=== PATIENT | male | born 1960 | race Caucasian/White ===

== ENCOUNTER 2019-03-15 17:32 | Inpatient (IN) | payer OTHER, MEDICAID ==
[~2019-03-15] VITALS: Ht 165.1 cm; Wt 56.3 kg
[~2019-03-15 17:32] MED LIST: AMLO-145 PO; ASPI-817 PO; ATOR40TA68 PO; CEFE1FRO IV; CHOL200073 PO; CLOP75TA28 PO; FLUC200T PO; HYDR-3601 PO; Insulin Glargine SC; LISI-313 PO; METF100010 PO; NOVO3I SC; ZOLP5TAB PO
[2019-03-15] MEDS ORDERED: ONDANSETRON 4 MG INJ IV PRN ×2 (20:30→21:30)
[2019-03-15] MEDS ORDERED: ACETAMINOPHEN 325 MG TAB PO PRN ×2 (20:30→21:30)
[2019-03-15] MEDS ORDERED: PIPER-TAZO 3.375 GM IV (PMX) 100 ML IVPB ONE (21:00)
[2019-03-15] MEDS ORDERED: DEXTROSE 50% 50 ML SYRINGE IV PRN ×2 (21:30)
[2019-03-15] MEDS ORDERED: GLUCOSE GEL 15 GRAM TUBE PO PRN ×2 (21:30)
[2019-03-15] MEDS ORDERED: HYDROCODONE/APAP (5/325) TAB PO PRN (21:30)
[2019-03-15] MEDS ORDERED: INSULIN GLARGINE [LANTus] (100 UNITS/ML) SYG SC ONE (21:30)
[2019-03-15] MEDS ORDERED: morphine 2 MG INJ IV PRN (21:30)
[2019-03-15] MEDS ORDERED: VANCOMYCIN IV PER PHARMACY XX SCH (21:30)
[2019-03-15] MEDS ORDERED: SOD CHLORIDE 0.9% 1,000 ML IV ONE (21:30)
[2019-03-15] MEDS ORDERED: GLUCOSE GEL 15 GRAM TUBE BUCCAL PRN (21:30)
[2019-03-15] MEDS ORDERED: GLUCAGON 1 MG INJ IM PRN (21:30)
[2019-03-15] MEDS ORDERED: VANCOMYCIN 1 GM in 250 ML IVPB ONE (21:30)
[2019-03-15] MEDS: SOD CHLORIDE 0.9% 1,000 ML IV SCH (23:46)
[2019-03-15] MEDS: DOCUSATE SODIUM 100 MG CAP PO SCH (23:54)
[2019-03-16] VITALS (18 sets, daily range): BP systolic 95–179; BP diastolic 58–91; PULSE 66–84; RESP 7–20; Ht 165.1 cm; Wt 56.3 kg
[2019-03-16] MEDS: INSULIN ASPART [NOVOLOG] 3 ML PEN SC SCH ×4 (00:03→17:54)
[2019-03-16] MEDS: ACCU-CHEK XX SCH (02:00)
[2019-03-16] MEDS: PIPER-TAZO 3.375 GM IV (PMX) 100 ML IVPB SCH ×3 (05:18→18:01)
[2019-03-16] MEDS: DOCUSATE SODIUM 100 MG CAP PO SCH ×2 (08:38→20:36)
[2019-03-16] MEDS: VANCOMYCIN 750 MG (PMX) 250 ML IVPB SCH (11:18)
[2019-03-16] MEDS ORDERED: PROPOFOL 20 ML ONE (12:00)
[2019-03-16] MEDS ORDERED: BUPIVACAINE 0.5% (SDV) 30 ML INJ ONE (12:21)
[2019-03-16] MEDS ORDERED: POLYMYXIN/BACITRACIN 1L IRRIG ONE (12:21)
[2019-03-16] MEDS ORDERED: LIDOCAINE 1% (MPF) 30 ML INJ ONE (12:21)
[2019-03-16] MEDS ORDERED: FENTAnyl 50 MCG/ML VIAL ONE (12:31)
[2019-03-16] MEDS ORDERED: MIDAZOLAM 1 MG/ML 2 ML INJ ONE (12:31)
[2019-03-16] MEDS: SOD CHLORIDE 0.9% 1,000 ML IV SCH ×2 (13:20→21:42)
[2019-03-16] MEDS ORDERED: FENTAnyl 50 MCG/ML VIAL IV PRN ×2 (13:30)
[2019-03-16] MEDS ORDERED: DIPHENHYDRAMINE 50 MG INJ IV PRN (13:30)
[2019-03-16] MEDS ORDERED: EPHEDrine 25 MG/5 ML SYG IV PRN (13:30)
[2019-03-16] MEDS ORDERED: hydrALAzine 20 MG INJ IV PRN (13:30)
[2019-03-16] MEDS ORDERED: ONDANSETRON 4 MG INJ IV PRN (13:30)
[2019-03-16] MEDS ORDERED: ALBUTEROL 0.083% (NEB) 2.5 MG/3 ML AMP HHN PRN (13:30)
[2019-03-16] MEDS ORDERED: METOCLOPRAMIDE 10 MG INJ IV PRN (13:30)
[2019-03-16] MEDS ORDERED: KETOROLAC 30 MG INJ IV PRN (13:30)
[2019-03-16] MEDS ORDERED: HYDROmorphONE 1 MG/5 ML IV SYRINGE IV PRN ×2 (13:30)
[2019-03-16] MEDS ORDERED: OXYCODONE/ACETAMINOPHEN (5/325) TAB PO PRN ×2 (13:30)
[2019-03-16] MEDS ORDERED: ALBUMIN HUMAN 5% 250 ML IV PRN (13:30)
[2019-03-16] MEDS ORDERED: LABETALOL HCL 20MG INJ IV PRN (13:30)
[2019-03-16] MEDS ORDERED: MEPERIDINE 25 MG INJ IV PRN (13:30)
[2019-03-16] MEDS: Insulin NOVOLOG SS MILD Algorithm (SS with meals and bedtime) SC SCH ×2 (17:25→20:37)
[2019-03-16] MEDS ORDERED: INSULIN ASPART [NOVOLOG] 3 ML PEN SC SCH (17:30)
[2019-03-16] MEDS: INSULIN GLARGINE [LANTus] (100 UNITS/ML) SYG SC SCH (20:43)
[2019-03-16] MEDS: hydrALAzine 20 MG INJ IV PRN (21:43)
[2019-03-17] MEDS: VANCOMYCIN 750 MG (PMX) 250 ML IVPB SCH ×2 (00:29→10:50)
[2019-03-17] MEDS: PIPER-TAZO 3.375 GM IV (PMX) 100 ML IVPB SCH ×2 (00:29→05:55)
[2019-03-17] MEDS: ACCU-CHEK XX SCH (02:00)
[2019-03-17 02:10] VITALS: BP 123/68; PULSE 83; RESP 17
[2019-03-17] MEDS: SOD CHLORIDE 0.9% 1,000 ML IV SCH (02:40)
[2019-03-17] MEDS: Insulin NOVOLOG SS MILD Algorithm (SS with meals and bedtime) SC SCH ×4 (07:00→21:00)
[2019-03-17 07:36] VITALS: BP 132/68; PULSE 72; RESP 16
[2019-03-17] MEDS: DAKINS 0.0125%(1/40) 473 ML SOLUTION TP SCH (08:52)
[2019-03-17] MEDS: DOCUSATE SODIUM 100 MG CAP PO SCH ×2 (08:52→20:57)
[2019-03-17] MEDS: INSULIN ASPART [NOVOLOG] 3 ML PEN SC SCH ×3 (09:00→17:56)
[2019-03-17] MEDS: CHOLECALCIFEROL 2,000 UNIT CAP PO SCH (09:31)
[2019-03-17] MEDS: LISINOPRIL 5 MG TAB PO SCH (09:31)
[2019-03-17] MEDS: MEROPENEM 1 GM/50ML(PMX) 50 ML IVPB SCH ×2 (10:48→21:37)
[2019-03-17] MEDS: CLINDAMYCIN 900 MG (PMX) 50 ML IVPB SCH ×2 (12:50→17:50)
[2019-03-17 14:39] VITALS: BP 130/66; PULSE 76; RESP 16
[2019-03-17] MEDS: BISACODYL (EC) 5 MG TAB PO PRN (19:05)
[2019-03-17 19:51] VITALS: BP 134/70; PULSE 77; RESP 16
[2019-03-17] MEDS: ATORVASTATIN 40 MG TAB PO SCH (20:57)
[2019-03-17] MEDS: INSULIN GLARGINE [LANTus] (100 UNITS/ML) SYG SC SCH (21:01)
[2019-03-17] MEDS: VANCOMYCIN 1 GM 250 ML IVPB SCH (22:29)
[2019-03-18] VITALS (10 sets, daily range): BP systolic 109–141; BP diastolic 56–75; PULSE 69–76; RESP 15–20
[2019-03-18] MEDS: CLINDAMYCIN 900 MG (PMX) 50 ML IVPB SCH ×3 (00:37→12:51)
[2019-03-18] MEDS: ACCU-CHEK XX SCH (02:00)
[2019-03-18] MEDS: SOD CHLORIDE 0.9% 1,000 ML IV SCH ×2 (02:16→17:41)
[2019-03-18] MEDS: INSULIN ASPART [NOVOLOG] 3 ML PEN SC SCH ×8 (05:22→20:52)
[2019-03-18] MEDS: MEROPENEM 1 GM/50ML(PMX) 50 ML IVPB SCH (05:24)
[2019-03-18] MEDS ORDERED: HEPARIN 1000 UNITS/ML 10 ML INJ ONE (07:54)
[2019-03-18] MEDS ORDERED: CLOPIDOGREL 300 MG TAB PO ONE (09:00)
[2019-03-18] MEDS: CHOLECALCIFEROL 2,000 UNIT CAP PO SCH (10:48)
[2019-03-18] MEDS: DOCUSATE SODIUM 100 MG CAP PO SCH ×2 (10:48→20:49)
[2019-03-18] MEDS: ASPIRIN (EC) 81 MG TAB PO SCH (10:48)
[2019-03-18] MEDS: LISINOPRIL 5 MG TAB PO SCH (10:48)
[2019-03-18] MEDS: VANCOMYCIN 1 GM 250 ML IVPB SCH ×2 (10:49→22:38)
[2019-03-18] MEDS: DAKINS 0.0125%(1/40) 473 ML SOLUTION TP SCH (10:49)
[2019-03-18] MEDS: BISACODYL (EC) 5 MG TAB PO PRN (15:39)
[2019-03-18] MEDS: CEFTRIAXONE 1 GM/50 ML (PMX) 50 ML IVPB SCH (17:07)
[2019-03-18] MEDS: ATORVASTATIN 40 MG TAB PO SCH (20:49)
[2019-03-18] MEDS: INSULIN GLARGINE [LANTus] (100 UNITS/ML) SYG SC SCH (20:51)
[2019-03-19 01:22] VITALS: BP 148/81; PULSE 74; RESP 16
[2019-03-19] MEDS: ACCU-CHEK XX SCH (02:00)
[2019-03-19] MEDS: SOD CHLORIDE 0.9% 1,000 ML IV SCH ×2 (06:36→21:11)
[2019-03-19 07:59] VITALS: BP 153/77; PULSE 72; RESP 20
[2019-03-19] MEDS: INSULIN ASPART [NOVOLOG] 3 ML PEN SC SCH ×7 (08:54→21:15)
[2019-03-19] MEDS: BISACODYL (EC) 5 MG TAB PO PRN (09:31)
[2019-03-19] MEDS: DOCUSATE SODIUM 100 MG CAP PO SCH ×2 (09:31→21:11)
[2019-03-19] MEDS: LISINOPRIL 5 MG TAB PO SCH (09:31)
[2019-03-19] MEDS: CHOLECALCIFEROL 2,000 UNIT CAP PO SCH (09:31)
[2019-03-19] MEDS: ASPIRIN (EC) 81 MG TAB PO SCH (09:31)
[2019-03-19] MEDS: CLOPIDOGREL 75 MG TAB PO SCH (09:32)
[2019-03-19] MEDS: DAKINS 0.0125%(1/40) 473 ML SOLUTION TP SCH (09:33)
[2019-03-19] MEDS: VANCOMYCIN 1 GM 250 ML IVPB SCH (11:47)
[2019-03-19 14:07] VITALS: BP 147/80; PULSE 74; RESP 20
[2019-03-19] MEDS: CEFTRIAXONE 1 GM/50 ML (PMX) 50 ML IVPB SCH (17:03)
[2019-03-19 19:31] VITALS: BP 135/76; PULSE 77; RESP 20
[2019-03-19] MEDS: ATORVASTATIN 40 MG TAB PO SCH (21:11)
[2019-03-19] MEDS: INSULIN GLARGINE [LANTus] (100 UNITS/ML) SYG SC SCH (21:14)
[2019-03-19] MEDS: HEPARIN 5,000 UNIT/1 ML VIAL SC SCH (21:16)
[2019-03-19] MEDS: VANCOMYCIN 750 MG (PMX) 250 ML IVPB SCH (23:11)
[2019-03-20] MEDS: ACCU-CHEK XX SCH (01:22)
[2019-03-20 01:33] VITALS: BP 151/83; PULSE 71; RESP 20
[2019-03-20 07:33] VITALS: BP 155/83; PULSE 69; RESP 16
[2019-03-20] MEDS: INSULIN ASPART [NOVOLOG] 3 ML PEN SC SCH ×7 (08:00→21:00)
[2019-03-20] MEDS: DOCUSATE SODIUM 100 MG CAP PO SCH ×2 (08:04→20:57)
[2019-03-20] MEDS: ASPIRIN (EC) 81 MG TAB PO SCH (08:04)
[2019-03-20] MEDS: CLOPIDOGREL 75 MG TAB PO SCH (08:04)
[2019-03-20] MEDS: CHOLECALCIFEROL 2,000 UNIT CAP PO SCH (08:05)
[2019-03-20] MEDS: LISINOPRIL 5 MG TAB PO SCH (08:05)
[2019-03-20] MEDS: HEPARIN 5,000 UNIT/1 ML VIAL SC SCH ×2 (08:09→21:03)
[2019-03-20] MEDS: DAKINS 0.0125%(1/40) 473 ML SOLUTION TP SCH (08:11)
[2019-03-20] MEDS: SOD CHLORIDE 0.9% 1,000 ML IV SCH ×2 (11:12→16:36)
[2019-03-20] MEDS: VANCOMYCIN 750 MG (PMX) 250 ML IVPB SCH ×2 (12:14→22:45)
[2019-03-20 13:53] VITALS: BP 160/77; PULSE 71; RESP 16
[2019-03-20] MEDS: CEFTRIAXONE 1 GM/50 ML (PMX) 50 ML IVPB SCH (16:35)
[2019-03-20 19:34] VITALS: BP 150/68; PULSE 70; RESP 20
[2019-03-20] MEDS: ATORVASTATIN 40 MG TAB PO SCH (20:57)
[2019-03-20] MEDS: INSULIN GLARGINE [LANTus] (100 UNITS/ML) SYG SC SCH (21:17)
[2019-03-21] VITALS (19 sets, daily range): BP systolic 136–162; BP diastolic 72–85; PULSE 66–82; RESP 16–36
[2019-03-21] MEDS: SOD CHLORIDE 0.9% 1,000 ML IV SCH (01:30)
[2019-03-21] MEDS: ACCU-CHEK XX SCH (01:31)
[2019-03-21] MEDS ORDERED: POLYMYXIN/BACITRACIN 1L IRRIG ONE (07:28)
[2019-03-21] MEDS ORDERED: MIDAZOLAM 1 MG/ML 2 ML INJ ONE (07:40)
[2019-03-21] MEDS ORDERED: PROPOFOL 20 ML ONE (07:40)
[2019-03-21] MEDS ORDERED: FENTAnyl 50 MCG/ML VIAL ONE (07:41)
[2019-03-21] MEDS ORDERED: ROPIVACAINE 0.2% 20 ML VIAL ONE (07:41)
[2019-03-21] MEDS ORDERED: hydrALAzine 20 MG INJ IV PRN (08:00)
[2019-03-21] MEDS ORDERED: OXYCODONE/ACETAMINOPHEN (5/325) TAB PO PRN ×2 (08:00)
[2019-03-21] MEDS ORDERED: ONDANSETRON 4 MG INJ IV PRN (08:00)
[2019-03-21] MEDS: INSULIN ASPART [NOVOLOG] 3 ML PEN SC SCH ×7 (08:00→20:20)
[2019-03-21] MEDS ORDERED: LABETALOL HCL 20MG INJ IV PRN (08:00)
[2019-03-21] MEDS ORDERED: FENTAnyl 50 MCG/ML VIAL IV PRN ×3 (08:00)
[2019-03-21] MEDS ORDERED: HYDROmorphONE 1 MG/5 ML IV SYRINGE IV PRN ×3 (08:00)
[2019-03-21] MEDS: CLOPIDOGREL 75 MG TAB PO SCH (09:00)
[2019-03-21] MEDS: HEPARIN 5,000 UNIT/1 ML VIAL SC SCH ×2 (09:00→20:19)
[2019-03-21] MEDS: CHOLECALCIFEROL 2,000 UNIT CAP PO SCH (09:00)
[2019-03-21] MEDS: ASPIRIN (EC) 81 MG TAB PO SCH (09:00)
[2019-03-21] MEDS: DAKINS 0.0125%(1/40) 473 ML SOLUTION TP SCH (09:00)
[2019-03-21] MEDS: LISINOPRIL 5 MG TAB PO SCH (09:00)
[2019-03-21] MEDS: DOCUSATE SODIUM 100 MG CAP PO SCH ×2 (09:29→21:32)
[2019-03-21] MEDS: VANCOMYCIN 750 MG (PMX) 250 ML IVPB SCH ×2 (10:57→23:04)
[2019-03-21] MEDS: CEFTRIAXONE 1 GM/50 ML (PMX) 50 ML IVPB SCH (15:17)
[2019-03-21] MEDS: INSULIN GLARGINE [LANTus] (100 UNITS/ML) SYG SC SCH (20:18)
[2019-03-21] MEDS: ATORVASTATIN 40 MG TAB PO SCH (20:19)
[2019-03-22] MEDS: ACCU-CHEK XX SCH (01:54)
[2019-03-22 02:35] VITALS: BP 145/75; PULSE 77; RESP 18
[2019-03-22 07:40] VITALS: BP 154/73; PULSE 77; RESP 18
[2019-03-22] MEDS: INSULIN ASPART [NOVOLOG] 3 ML PEN SC SCH ×7 (08:00→21:04)
[2019-03-22] MEDS: CLOPIDOGREL 75 MG TAB PO SCH (08:24)
[2019-03-22] MEDS: ASPIRIN (EC) 81 MG TAB PO SCH (08:24)
[2019-03-22] MEDS: LISINOPRIL 5 MG TAB PO SCH (08:24)
[2019-03-22] MEDS: HEPARIN 5,000 UNIT/1 ML VIAL SC SCH ×2 (08:31→21:05)
[2019-03-22] MEDS: DAKINS 0.0125%(1/40) 473 ML SOLUTION TP SCH (08:31)
[2019-03-22] MEDS: DOCUSATE SODIUM 100 MG CAP PO SCH ×2 (10:30→21:01)
[2019-03-22] MEDS: CHOLECALCIFEROL 2,000 UNIT CAP PO SCH (10:30)
[2019-03-22] MEDS: VANCOMYCIN 750 MG (PMX) 250 ML IVPB SCH ×2 (10:33→23:38)
[2019-03-22] MEDS: BISACODYL (EC) 5 MG TAB PO PRN (12:57)
[2019-03-22 14:20] VITALS: BP 145/78; PULSE 71; RESP 18
[2019-03-22] MEDS: CEFTRIAXONE 1 GM/50 ML (PMX) 50 ML IVPB SCH (17:35)
[2019-03-22 19:42] VITALS: BP 146/79; PULSE 72; RESP 18
[2019-03-22] MEDS: ATORVASTATIN 40 MG TAB PO SCH (21:01)
[2019-03-22] MEDS: INSULIN GLARGINE [LANTus] (100 UNITS/ML) SYG SC SCH (21:04)
[2019-03-23 01:48] VITALS: BP 140/73; PULSE 70; RESP 17
[2019-03-23] MEDS: ACCU-CHEK XX SCH (01:48)
[2019-03-23 07:36] VITALS: BP 157/78; PULSE 62; RESP 18
[2019-03-23] MEDS: INSULIN ASPART [NOVOLOG] 3 ML PEN SC SCH ×7 (08:00→20:48)
[2019-03-23] MEDS: CHOLECALCIFEROL 2,000 UNIT CAP PO SCH (08:13)
[2019-03-23] MEDS: LISINOPRIL 5 MG TAB PO SCH (08:14)
[2019-03-23] MEDS: CLOPIDOGREL 75 MG TAB PO SCH (08:14)
[2019-03-23] MEDS: ASPIRIN (EC) 81 MG TAB PO SCH (08:14)
[2019-03-23] MEDS: HEPARIN 5,000 UNIT/1 ML VIAL SC SCH ×2 (08:17→20:45)
[2019-03-23] MEDS: NACL 0.9% 3 ML SYG IV SCH ×2 (08:19→17:52)
[2019-03-23] MEDS: DAKINS 0.0125%(1/40) 473 ML SOLUTION TP SCH (08:19)
[2019-03-23] MEDS: DOCUSATE SODIUM 100 MG CAP PO SCH ×2 (08:29→20:40)
[2019-03-23] MEDS: BISACODYL (EC) 5 MG TAB PO PRN (08:29)
[2019-03-23] MEDS: VANCOMYCIN 750 MG (PMX) 250 ML IVPB SCH ×2 (12:47→23:54)
[2019-03-23 13:31] VITALS: BP 148/75; PULSE 72; RESP 18
[2019-03-23] MEDS: CEFTRIAXONE 1 GM/50 ML (PMX) 50 ML IVPB SCH (16:55)
[2019-03-23 19:30] VITALS: BP 139/77; PULSE 70; RESP 20
[2019-03-23] MEDS: ATORVASTATIN 40 MG TAB PO SCH (20:40)
[2019-03-23] MEDS: INSULIN GLARGINE [LANTus] (100 UNITS/ML) SYG SC SCH (20:44)
[2019-03-24] MEDS: ACCU-CHEK XX SCH (02:00)
[2019-03-24 02:04] VITALS: BP 159/77; PULSE 76; RESP 18
[2019-03-24 07:42] VITALS: BP 131/63; PULSE 74; RESP 16
[2019-03-24] MEDS: INSULIN ASPART [NOVOLOG] 3 ML PEN SC SCH ×7 (08:00→20:47)
[2019-03-24] MEDS: DAKINS 0.0125%(1/40) 473 ML SOLUTION TP SCH (08:09)
[2019-03-24] MEDS: CHOLECALCIFEROL 2,000 UNIT CAP PO SCH (08:22)
[2019-03-24] MEDS: CLOPIDOGREL 75 MG TAB PO SCH (08:22)
[2019-03-24] MEDS: ASPIRIN (EC) 81 MG TAB PO SCH (08:22)
[2019-03-24] MEDS: LISINOPRIL 5 MG TAB PO SCH (08:23)
[2019-03-24] MEDS: HEPARIN 5,000 UNIT/1 ML VIAL SC SCH ×2 (08:32→20:52)
[2019-03-24] MEDS: DOCUSATE SODIUM 100 MG CAP PO SCH ×2 (08:33→20:45)
[2019-03-24] MEDS: VANCOMYCIN 750 MG (PMX) 250 ML IVPB SCH ×2 (11:30→23:24)
[2019-03-24 14:32] VITALS: BP 168/80; PULSE 79; RESP 17
[2019-03-24] MEDS: CEFTRIAXONE 1 GM/50 ML (PMX) 50 ML IVPB SCH (16:36)
[2019-03-24 19:38] VITALS: BP 157/82; PULSE 70; RESP 18
[2019-03-24] MEDS: ATORVASTATIN 40 MG TAB PO SCH (20:46)
[2019-03-24] MEDS: INSULIN GLARGINE [LANTus] (100 UNITS/ML) SYG SC SCH (20:51)
[2019-03-25 01:10] VITALS: BP 140/72; PULSE 70; RESP 18
[2019-03-25] MEDS: ACCU-CHEK XX SCH (02:00)
[2019-03-25 07:40] VITALS: BP 153/81; PULSE 68; RESP 17
[2019-03-25] MEDS: INSULIN ASPART [NOVOLOG] 3 ML PEN SC SCH ×7 (08:00→20:41)
[2019-03-25] MEDS: LISINOPRIL 5 MG TAB PO SCH (08:38)
[2019-03-25] MEDS: CLOPIDOGREL 75 MG TAB PO SCH (08:38)
[2019-03-25] MEDS: ASPIRIN (EC) 81 MG TAB PO SCH (08:38)
[2019-03-25] MEDS: CHOLECALCIFEROL 2,000 UNIT CAP PO SCH (08:38)
[2019-03-25] MEDS: HEPARIN 5,000 UNIT/1 ML VIAL SC SCH ×2 (08:41→20:43)
[2019-03-25] MEDS: DAKINS 0.0125%(1/40) 473 ML SOLUTION TP SCH (09:00)
[2019-03-25] MEDS: DOCUSATE SODIUM 100 MG CAP PO SCH ×2 (09:52→20:41)
[2019-03-25] MEDS: VANCOMYCIN 750 MG (PMX) 250 ML IVPB SCH ×2 (11:04→23:14)
[2019-03-25 14:00] VITALS: BP 152/80; PULSE 64; RESP 17
[2019-03-25] MEDS: CEFTRIAXONE 1 GM/50 ML (PMX) 50 ML IVPB SCH (16:31)
[2019-03-25 19:44] VITALS: BP 143/74; PULSE 67; RESP 16
[2019-03-25] MEDS: ATORVASTATIN 40 MG TAB PO SCH (20:41)
[2019-03-25] MEDS: INSULIN GLARGINE [LANTus] (100 UNITS/ML) SYG SC SCH (20:45)
[2019-03-25] MEDS ORDERED: BUMETANIDE 1 MG INJ IV ONE (21:30)
[2019-03-25 22:01] VITALS: BP 164/88; PULSE 68; RESP 16
[2019-03-26 01:34] VITALS: BP 147/73; PULSE 71; RESP 16
[2019-03-26] MEDS: ACCU-CHEK XX SCH (02:00)
[2019-03-26] MEDS: INSULIN ASPART [NOVOLOG] 3 ML PEN SC SCH ×7 (08:00→20:41)
[2019-03-26 08:18] VITALS: BP 156/78; PULSE 66; RESP 19
[2019-03-26] MEDS: CLOPIDOGREL 75 MG TAB PO SCH (08:40)
[2019-03-26] MEDS: HEPARIN 5,000 UNIT/1 ML VIAL SC SCH ×2 (08:40→20:43)
[2019-03-26] MEDS: DAKINS 0.0125%(1/40) 473 ML SOLUTION TP SCH (08:41)
[2019-03-26] MEDS: ASPIRIN (EC) 81 MG TAB PO SCH (08:41)
[2019-03-26] MEDS: CHOLECALCIFEROL 2,000 UNIT CAP PO SCH (08:41)
[2019-03-26] MEDS: LISINOPRIL 5 MG TAB PO SCH (08:41)
[2019-03-26] MEDS: DOCUSATE SODIUM 100 MG CAP PO SCH ×2 (08:41→20:47)
[2019-03-26] MEDS: VANCOMYCIN 750 MG (PMX) 250 ML IVPB SCH ×2 (11:30→23:24)
[2019-03-26 15:36] VITALS: BP 131/69; PULSE 74; RESP 18
[2019-03-26] MEDS: CEFTRIAXONE 1 GM/50 ML (PMX) 50 ML IVPB SCH (16:24)
[2019-03-26 19:42] VITALS: BP 129/74; PULSE 73; RESP 18
[2019-03-26] MEDS: ATORVASTATIN 40 MG TAB PO SCH (20:39)
[2019-03-26] MEDS: INSULIN GLARGINE [LANTus] (100 UNITS/ML) SYG SC SCH (20:43)
[2019-03-27] MEDS: ACCU-CHEK XX SCH (00:41)
[2019-03-27 01:51] VITALS: BP 149/78; PULSE 69; RESP 16
[2019-03-27] MEDS: INSULIN ASPART [NOVOLOG] 3 ML PEN SC SCH ×7 (08:00→20:22)
[2019-03-27 08:15] VITALS: BP 152/74; PULSE 72; RESP 18
[2019-03-27] MEDS: ASPIRIN (EC) 81 MG TAB PO SCH (08:52)
[2019-03-27] MEDS: CLOPIDOGREL 75 MG TAB PO SCH (08:52)
[2019-03-27] MEDS: CHOLECALCIFEROL 2,000 UNIT CAP PO SCH (08:52)
[2019-03-27] MEDS: DOCUSATE SODIUM 100 MG CAP PO SCH ×2 (08:52→20:21)
[2019-03-27] MEDS: LISINOPRIL 5 MG TAB PO SCH (08:52)
[2019-03-27] MEDS: HEPARIN 5,000 UNIT/1 ML VIAL SC SCH ×2 (08:58→20:24)
[2019-03-27] MEDS: DAKINS 0.0125%(1/40) 473 ML SOLUTION TP SCH (09:00)
[2019-03-27 14:36] VITALS: BP 153/74; PULSE 65; RESP 18
[2019-03-27 19:53] VITALS: BP 142/71; PULSE 70; RESP 17
[2019-03-27] MEDS: ATORVASTATIN 40 MG TAB PO SCH (20:21)
[2019-03-27] MEDS: INSULIN GLARGINE [LANTus] (100 UNITS/ML) SYG SC SCH (20:24)
[2019-03-28] MEDS ORDERED: FUROSEMIDE 40 MG INJ IV ONE (01:00)
[2019-03-28 01:09] VITALS: BP 151/74; PULSE 71; RESP 18
[2019-03-28] MEDS: ACCU-CHEK XX SCH (01:09)
[2019-03-28 07:45] VITALS: BP 149/75; PULSE 68; RESP 17
[2019-03-28] MEDS: INSULIN ASPART [NOVOLOG] 3 ML PEN SC SCH ×7 (08:00→20:17)
[2019-03-28] MEDS: ASPIRIN (EC) 81 MG TAB PO SCH (08:12)
[2019-03-28] MEDS: CHOLECALCIFEROL 2,000 UNIT CAP PO SCH (08:12)
[2019-03-28] MEDS: CLOPIDOGREL 75 MG TAB PO SCH (08:12)
[2019-03-28] MEDS: LISINOPRIL 5 MG TAB PO SCH (08:12)
[2019-03-28] MEDS: HEPARIN 5,000 UNIT/1 ML VIAL SC SCH ×2 (08:12→20:24)
[2019-03-28] MEDS: DAKINS 0.0125%(1/40) 473 ML SOLUTION TP SCH (08:13)
[2019-03-28] MEDS: DOCUSATE SODIUM 100 MG CAP PO SCH ×2 (08:19→20:17)
[2019-03-28 14:31] VITALS: BP 138/68; PULSE 72; RESP 19
[2019-03-28 20:04] VITALS: BP 144/74; PULSE 68; RESP 18
[2019-03-28] MEDS: ATORVASTATIN 40 MG TAB PO SCH (20:17)
[2019-03-28] MEDS: INSULIN GLARGINE [LANTus] (100 UNITS/ML) SYG SC SCH (20:23)
[2019-03-29] MEDS: ACCU-CHEK XX SCH (02:00)
[2019-03-29 02:09] VITALS: BP 154/85; PULSE 64; RESP 18
[2019-03-29 07:44] VITALS: BP 160/81; PULSE 65; RESP 18
[2019-03-29] MEDS: INSULIN ASPART [NOVOLOG] 3 ML PEN SC SCH ×7 (08:00→20:14)
[2019-03-29] MEDS: HEPARIN 5,000 UNIT/1 ML VIAL SC SCH ×2 (08:13→20:16)
[2019-03-29] MEDS: DOCUSATE SODIUM 100 MG CAP PO SCH ×2 (08:16→20:16)
[2019-03-29] MEDS: ASPIRIN (EC) 81 MG TAB PO SCH (08:17)
[2019-03-29] MEDS: CLOPIDOGREL 75 MG TAB PO SCH (08:17)
[2019-03-29] MEDS: CHOLECALCIFEROL 2,000 UNIT CAP PO SCH (08:17)
[2019-03-29] MEDS: LISINOPRIL 5 MG TAB PO SCH (08:17)
[2019-03-29] MEDS: DAKINS 0.0125%(1/40) 473 ML SOLUTION TP SCH (08:19)
[2019-03-29 13:18] VITALS: BP 160/76; PULSE 69; RESP 16
[2019-03-29 19:42] VITALS: BP 150/88; PULSE 72; RESP 16
[2019-03-29] MEDS: POLYETHYLENE GLYCOL 17 GM PACKET PO SCH (20:12)
[2019-03-29] MEDS: BISACODYL (EC) 5 MG TAB PO PRN (20:12)
[2019-03-29] MEDS: ATORVASTATIN 40 MG TAB PO SCH (20:12)
[2019-03-29] MEDS: INSULIN GLARGINE [LANTus] (100 UNITS/ML) SYG SC SCH (20:15)
[2019-03-29] MEDS ORDERED: DOCUSATE SODIUM 100 MG CAP PO SCH (21:00)
[2019-03-30] MEDS: ACCU-CHEK XX SCH (02:00)
[2019-03-30 02:05] VITALS: BP 153/77; PULSE 71; RESP 18
[2019-03-30 07:58] VITALS: BP 146/67; PULSE 71; RESP 17
[2019-03-30] MEDS: INSULIN ASPART [NOVOLOG] 3 ML PEN SC SCH ×7 (08:00→21:00)
[2019-03-30] MEDS: CLOPIDOGREL 75 MG TAB PO SCH (08:46)
[2019-03-30] MEDS: ASPIRIN (EC) 81 MG TAB PO SCH (08:46)
[2019-03-30] MEDS: CHOLECALCIFEROL 2,000 UNIT CAP PO SCH (08:46)
[2019-03-30] MEDS: DAKINS 0.0125%(1/40) 473 ML SOLUTION TP SCH (08:47)
[2019-03-30] MEDS: LISINOPRIL 5 MG TAB PO SCH (08:47)
[2019-03-30] MEDS: POLYETHYLENE GLYCOL 17 GM PACKET PO SCH (08:47)
[2019-03-30] MEDS: DOCUSATE SODIUM 100 MG CAP PO SCH ×2 (08:51→21:24)
[2019-03-30] MEDS: HEPARIN 5,000 UNIT/1 ML VIAL SC SCH ×2 (08:55→21:22)
[2019-03-30 15:30] VITALS: BP 130/75; PULSE 81; RESP 17
[2019-03-30 19:43] VITALS: BP 157/81; PULSE 72; RESP 16
[2019-03-30] MEDS: ATORVASTATIN 40 MG TAB PO SCH (21:24)
[2019-03-30] MEDS: INSULIN GLARGINE [LANTus] (100 UNITS/ML) SYG SC SCH (21:24)
[2019-03-31] MEDS: ACCU-CHEK XX SCH (02:00)
[2019-03-31 02:54] VITALS: BP 146/75; PULSE 71; RESP 18
[2019-03-31 07:46] VITALS: BP 156/81; PULSE 69; RESP 16
[2019-03-31] MEDS: INSULIN ASPART [NOVOLOG] 3 ML PEN SC SCH ×7 (08:00→20:52)
[2019-03-31] MEDS: HEPARIN 5,000 UNIT/1 ML VIAL SC SCH ×2 (08:26→20:56)
[2019-03-31] MEDS: DOCUSATE SODIUM 100 MG CAP PO SCH ×2 (08:26→20:53)
[2019-03-31] MEDS: CLOPIDOGREL 75 MG TAB PO SCH (08:27)
[2019-03-31] MEDS: POLYETHYLENE GLYCOL 17 GM PACKET PO SCH (08:27)
[2019-03-31] MEDS: ASPIRIN (EC) 81 MG TAB PO SCH (08:27)
[2019-03-31] MEDS: CHOLECALCIFEROL 2,000 UNIT CAP PO SCH (08:27)
[2019-03-31] MEDS: LISINOPRIL 5 MG TAB PO SCH (08:28)
[2019-03-31] MEDS: DAKINS 0.0125%(1/40) 473 ML SOLUTION TP SCH (08:28)
[2019-03-31] MEDS ORDERED: CEFAZOLIN 2 GM/50 ML (PMX) 50 ML IVPB ONE (14:00)
[2019-03-31 15:18] VITALS: BP 147/74; PULSE 69; RESP 16
[2019-03-31 19:30] VITALS: BP 133/68; PULSE 72; RESP 17
[2019-03-31] MEDS: INSULIN GLARGINE [LANTus] (100 UNITS/ML) SYG SC SCH (20:51)
[2019-03-31] MEDS: ATORVASTATIN 40 MG TAB PO SCH (20:52)
[2019-04-01] VITALS (13 sets, daily range): BP systolic 94–169; BP diastolic 56–83; PULSE 66–87; RESP 7–18
[2019-04-01] MEDS: ACCU-CHEK XX SCH (01:30)
[2019-04-01] MEDS ORDERED: MINERAL OIL LIGHT 10 ML VIAL ONE (06:48)
[2019-04-01] MEDS ORDERED: LIDOCAINE 1% (MPF) 30 ML INJ ONE (06:48)
[2019-04-01] MEDS ORDERED: MIDAZOLAM 1 MG/ML 2 ML INJ ONE (07:12)
[2019-04-01] MEDS ORDERED: PROPOFOL 20 ML ONE (07:12)
[2019-04-01] MEDS ORDERED: FENTAnyl 50 MCG/ML VIAL ONE (07:13)
[2019-04-01] MEDS ORDERED: LABETALOL HCL 20MG INJ IV PRN (08:00)
[2019-04-01] MEDS ORDERED: hydrALAzine 20 MG INJ IV PRN (08:00)
[2019-04-01] MEDS ORDERED: METOCLOPRAMIDE 10 MG INJ IV PRN (08:00)
[2019-04-01] MEDS ORDERED: FENTAnyl 50 MCG/ML VIAL IV PRN ×2 (08:00)
[2019-04-01] MEDS ORDERED: HYDROmorphONE 1 MG/5 ML IV SYRINGE IV PRN ×2 (08:00)
[2019-04-01] MEDS ORDERED: ONDANSETRON 4 MG INJ IV PRN (08:00)
[2019-04-01] MEDS ORDERED: MEPERIDINE 25 MG INJ IV PRN (08:00)
[2019-04-01] MEDS ORDERED: POLYMYXIN/BACITRACIN 1L IRRIG IRR ONE (08:09)
[2019-04-01] MEDS: INSULIN ASPART [NOVOLOG] 3 ML PEN SC SCH ×7 (09:38→23:24)
[2019-04-01] MEDS ORDERED: POLYMYXIN/BACITRACIN 1L IRRIG ONE (10:00)
[2019-04-01] MEDS: HEPARIN 5,000 UNIT/1 ML VIAL SC SCH ×2 (10:03→21:01)
[2019-04-01] MEDS: ASPIRIN (EC) 81 MG TAB PO SCH (10:04)
[2019-04-01] MEDS: CLOPIDOGREL 75 MG TAB PO SCH (10:04)
[2019-04-01] MEDS: LISINOPRIL 5 MG TAB PO SCH (10:05)
[2019-04-01] MEDS: CHOLECALCIFEROL 2,000 UNIT CAP PO SCH (10:05)
[2019-04-01] MEDS: POLYETHYLENE GLYCOL 17 GM PACKET PO SCH (10:06)
[2019-04-01] MEDS: DOCUSATE SODIUM 100 MG CAP PO SCH ×2 (10:06→20:49)
[2019-04-01] MEDS: DAKINS 0.0125%(1/40) 473 ML SOLUTION TP SCH (10:08)
[2019-04-01] MEDS: ATORVASTATIN 40 MG TAB PO SCH (20:49)
[2019-04-01] MEDS: INSULIN GLARGINE [LANTus] (100 UNITS/ML) SYG SC SCH (23:24)
[2019-04-02 01:44] VITALS: BP 103/53; PULSE 79; RESP 15
[2019-04-02] MEDS: ACCU-CHEK XX SCH (01:58)
[2019-04-02 07:51] VITALS: BP 127/70; PULSE 80; RESP 16
[2019-04-02] MEDS: INSULIN ASPART [NOVOLOG] 3 ML PEN SC SCH ×7 (08:00→20:38)
[2019-04-02] MEDS: POLYETHYLENE GLYCOL 17 GM PACKET PO SCH (08:47)
[2019-04-02] MEDS: CHOLECALCIFEROL 2,000 UNIT CAP PO SCH (08:48)
[2019-04-02] MEDS: DOCUSATE SODIUM 100 MG CAP PO SCH ×2 (08:48→20:35)
[2019-04-02] MEDS: ASPIRIN (EC) 81 MG TAB PO SCH (08:48)
[2019-04-02] MEDS: LISINOPRIL 5 MG TAB PO SCH (08:48)
[2019-04-02] MEDS: DAKINS 0.0125%(1/40) 473 ML SOLUTION TP SCH (08:48)
[2019-04-02] MEDS: CLOPIDOGREL 75 MG TAB PO SCH (08:48)
[2019-04-02] MEDS: HEPARIN 5,000 UNIT/1 ML VIAL SC SCH ×2 (08:50→20:39)
[2019-04-02 13:47] VITALS: BP 112/59; PULSE 86; RESP 18
[2019-04-02 19:42] VITALS: BP 133/73; PULSE 86; RESP 20
[2019-04-02] MEDS: ATORVASTATIN 40 MG TAB PO SCH (20:35)
[2019-04-02] MEDS: INSULIN GLARGINE [LANTus] (100 UNITS/ML) SYG SC SCH (20:37)
[2019-04-02] MEDS ORDERED: INSULIN GLARGINE [LANTus] (100 UNITS/ML) SYG SC SCH (22:30)
[2019-04-03 01:33] VITALS: BP 137/65; PULSE 83; RESP 19
[2019-04-03] MEDS: ACCU-CHEK XX SCH (02:00)
[2019-04-03 07:38] VITALS: BP 154/73; PULSE 87; RESP 17
[2019-04-03] MEDS: POLYETHYLENE GLYCOL 17 GM PACKET PO SCH (08:42)
[2019-04-03] MEDS: CLOPIDOGREL 75 MG TAB PO SCH (08:43)
[2019-04-03] MEDS: CHOLECALCIFEROL 2,000 UNIT CAP PO SCH (08:43)
[2019-04-03] MEDS: ASPIRIN (EC) 81 MG TAB PO SCH (08:43)
[2019-04-03] MEDS: LISINOPRIL 5 MG TAB PO SCH (08:44)
[2019-04-03] MEDS: INSULIN ASPART [NOVOLOG] 3 ML PEN SC SCH ×7 (08:48→20:34)
[2019-04-03] MEDS: HEPARIN 5,000 UNIT/1 ML VIAL SC SCH ×2 (08:49→20:33)
[2019-04-03] MEDS: DAKINS 0.0125%(1/40) 473 ML SOLUTION TP SCH (08:55)
[2019-04-03] MEDS: DOCUSATE SODIUM 100 MG CAP PO SCH ×2 (09:13→20:35)
[2019-04-03] MEDS ORDERED: SOD CHLORIDE 0.9% 250 ML IV* ONE (11:40)
[2019-04-03] MEDS: FLUCONAZOLE 200 MG TAB PO SCH ×2 (13:04→20:27)
[2019-04-03] MEDS: CIPROFLOXACIN 250 MG TAB PO SCH ×2 (13:04→20:27)
[2019-04-03 14:15] VITALS: BP 126/63; PULSE 75; RESP 19
[2019-04-03 19:46] VITALS: BP 128/75; PULSE 74; RESP 16
[2019-04-03] MEDS: ATORVASTATIN 40 MG TAB PO SCH (20:27)
[2019-04-03] MEDS: INSULIN GLARGINE [LANTus] (100 UNITS/ML) SYG SC SCH (20:35)
[2019-04-04 02:00] VITALS: BP 138/76; PULSE 71; RESP 16
[2019-04-04] MEDS: ACCU-CHEK XX SCH (02:00)
[2019-04-04 07:23] VITALS: BP 157/80; PULSE 73; RESP 18
[2019-04-04] MEDS: INSULIN ASPART [NOVOLOG] 3 ML PEN SC SCH ×7 (08:00→20:50)
[2019-04-04] MEDS: CIPROFLOXACIN 250 MG TAB PO SCH ×2 (08:29→20:46)
[2019-04-04] MEDS: ASPIRIN (EC) 81 MG TAB PO SCH (08:29)
[2019-04-04] MEDS: CLOPIDOGREL 75 MG TAB PO SCH (08:29)
[2019-04-04] MEDS: CHOLECALCIFEROL 2,000 UNIT CAP PO SCH (08:29)
[2019-04-04] MEDS: FLUCONAZOLE 200 MG TAB PO SCH ×2 (08:29→20:56)
[2019-04-04] MEDS: LISINOPRIL 5 MG TAB PO SCH (08:30)
[2019-04-04] MEDS: HEPARIN 5,000 UNIT/1 ML VIAL SC SCH ×2 (08:32→20:54)
[2019-04-04] MEDS: POLYETHYLENE GLYCOL 17 GM PACKET PO SCH (08:33)
[2019-04-04] MEDS: DAKINS 0.0125%(1/40) 473 ML SOLUTION TP SCH (08:36)
[2019-04-04] MEDS: DOCUSATE SODIUM 100 MG CAP PO SCH ×2 (10:20→20:45)
[2019-04-04 15:16] VITALS: BP 185/90; PULSE 73; RESP 18
[2019-04-04] MEDS: hydrALAzine 20 MG INJ IV PRN (15:48)
[2019-04-04 17:38] VITALS: BP 156/75; PULSE 78; RESP 16
[2019-04-04 20:08] VITALS: BP 124/67; PULSE 82; RESP 17
[2019-04-04] MEDS: ATORVASTATIN 40 MG TAB PO SCH (20:45)
[2019-04-04] MEDS: INSULIN GLARGINE [LANTus] (100 UNITS/ML) SYG SC SCH (20:52)
[2019-04-05] MEDS: ACCU-CHEK XX SCH ×2 (02:00→02:19)
[2019-04-05 02:31] VITALS: BP 139/72; PULSE 76; RESP 18
[2019-04-05 07:26] VITALS: BP 155/82; PULSE 76; RESP 18
[2019-04-05] MEDS: CIPROFLOXACIN 250 MG TAB PO SCH (08:03)
[2019-04-05] MEDS: CHOLECALCIFEROL 2,000 UNIT CAP PO SCH (08:03)
[2019-04-05] MEDS: DOCUSATE SODIUM 100 MG CAP PO SCH ×2 (08:04→20:19)
[2019-04-05] MEDS: ASPIRIN (EC) 81 MG TAB PO SCH (08:04)
[2019-04-05] MEDS: POLYETHYLENE GLYCOL 17 GM PACKET PO SCH (08:04)
[2019-04-05] MEDS: LISINOPRIL 5 MG TAB PO SCH (08:04)
[2019-04-05] MEDS: CLOPIDOGREL 75 MG TAB PO SCH (08:04)
[2019-04-05] MEDS: DAKINS 0.0125%(1/40) 473 ML SOLUTION TP SCH (08:04)
[2019-04-05] MEDS: HEPARIN 5,000 UNIT/1 ML VIAL SC SCH ×2 (08:06→20:24)
[2019-04-05] MEDS: INSULIN ASPART [NOVOLOG] 3 ML PEN SC SCH ×7 (08:07→20:20)
[2019-04-05] MEDS: FLUCONAZOLE 200 MG TAB PO SCH ×2 (09:52→20:19)
[2019-04-05 13:55] VITALS: BP 134/69; PULSE 72; RESP 20
[2019-04-05] MEDS: ATORVASTATIN 40 MG TAB PO SCH (20:19)
[2019-04-05] MEDS: CEFEPIME 1GM/50 ML (PMX) 50 ML IVPB SCH (20:19)
[2019-04-05] MEDS: INSULIN GLARGINE [LANTus] (100 UNITS/ML) SYG SC SCH (20:23)
[2019-04-05 20:29] VITALS: BP 136/72; PULSE 77; RESP 18
[2019-04-06] VITALS (8 sets, daily range): BP systolic 130–177; BP diastolic 72–87; PULSE 69–77; RESP 16–20
[2019-04-06] MEDS: ACCU-CHEK XX SCH (02:00)
[2019-04-06] MEDS: BISACODYL (EC) 5 MG TAB PO PRN (06:42)
[2019-04-06] MEDS: INSULIN ASPART [NOVOLOG] 3 ML PEN SC SCH ×7 (08:00→20:48)
[2019-04-06] MEDS: HEPARIN 5,000 UNIT/1 ML VIAL SC SCH ×2 (09:00→20:46)
[2019-04-06] MEDS: DAKINS 0.0125%(1/40) 473 ML SOLUTION TP SCH (09:00)
[2019-04-06] MEDS: CLOPIDOGREL 75 MG TAB PO SCH (09:09)
[2019-04-06] MEDS: FLUCONAZOLE 200 MG TAB PO SCH ×2 (09:09→20:42)
[2019-04-06] MEDS: ASPIRIN (EC) 81 MG TAB PO SCH (09:09)
[2019-04-06] MEDS: POLYETHYLENE GLYCOL 17 GM PACKET PO SCH (09:09)
[2019-04-06] MEDS: DOCUSATE SODIUM 100 MG CAP PO SCH ×2 (09:09→20:42)
[2019-04-06] MEDS: CEFEPIME 1GM/50 ML (PMX) 50 ML IVPB SCH ×2 (09:09→20:42)
[2019-04-06] MEDS: CHOLECALCIFEROL 2,000 UNIT CAP PO SCH (09:10)
[2019-04-06] MEDS: LISINOPRIL 5 MG TAB PO SCH (09:10)
[2019-04-06] MEDS: hydrALAzine 20 MG INJ IV PRN (18:00)
[2019-04-06] MEDS: ATORVASTATIN 40 MG TAB PO SCH (20:42)
[2019-04-06] MEDS: INSULIN GLARGINE [LANTus] (100 UNITS/ML) SYG SC SCH (20:47)
[2019-04-07] MEDS: ACCU-CHEK XX SCH (02:00)
[2019-04-07 02:04] VITALS: BP 145/76; PULSE 76; RESP 18
[2019-04-07 07:29] VITALS: BP 150/70; PULSE 78; RESP 17
[2019-04-07] MEDS: INSULIN ASPART [NOVOLOG] 3 ML PEN SC SCH ×7 (08:00→20:43)
[2019-04-07] MEDS: CEFEPIME 1GM/50 ML (PMX) 50 ML IVPB SCH ×2 (08:07→20:38)
[2019-04-07] MEDS: CLOPIDOGREL 75 MG TAB PO SCH (08:09)
[2019-04-07] MEDS: ASPIRIN (EC) 81 MG TAB PO SCH (08:09)
[2019-04-07] MEDS: POLYETHYLENE GLYCOL 17 GM PACKET PO SCH (08:09)
[2019-04-07] MEDS: FLUCONAZOLE 200 MG TAB PO SCH ×2 (08:09→20:38)
[2019-04-07] MEDS: LISINOPRIL 5 MG TAB PO SCH (08:09)
[2019-04-07] MEDS: CHOLECALCIFEROL 2,000 UNIT CAP PO SCH (08:09)
[2019-04-07] MEDS: HEPARIN 5,000 UNIT/1 ML VIAL SC SCH ×2 (08:19→20:42)
[2019-04-07] MEDS: DOCUSATE SODIUM 100 MG CAP PO SCH ×2 (08:52→20:39)
[2019-04-07 14:36] VITALS: BP 143/73; PULSE 78; RESP 17
[2019-04-07 20:00] VITALS: BP 146/74; PULSE 76; RESP 18
[2019-04-07] MEDS: ATORVASTATIN 40 MG TAB PO SCH (20:38)
[2019-04-07] MEDS: INSULIN GLARGINE [LANTus] (100 UNITS/ML) SYG SC SCH (20:42)
[2019-04-08 02:00] VITALS: BP 131/62; PULSE 77; RESP 18
[2019-04-08] MEDS: ACCU-CHEK XX SCH (02:00)
[2019-04-08 07:30] VITALS: BP 147/74; PULSE 76; RESP 20
[2019-04-08] MEDS: INSULIN ASPART [NOVOLOG] 3 ML PEN SC SCH ×7 (08:00→20:47)
[2019-04-08] MEDS: CEFEPIME 1GM/50 ML (PMX) 50 ML IVPB SCH ×2 (08:06→20:51)
[2019-04-08] MEDS: POLYETHYLENE GLYCOL 17 GM PACKET PO SCH (08:06)
[2019-04-08] MEDS: ASPIRIN (EC) 81 MG TAB PO SCH (08:07)
[2019-04-08] MEDS: FLUCONAZOLE 200 MG TAB PO SCH ×2 (08:07→20:50)
[2019-04-08] MEDS: CLOPIDOGREL 75 MG TAB PO SCH (08:07)
[2019-04-08] MEDS: DOCUSATE SODIUM 100 MG CAP PO SCH ×2 (08:07→20:51)
[2019-04-08] MEDS: CHOLECALCIFEROL 2,000 UNIT CAP PO SCH (08:07)
[2019-04-08] MEDS: LISINOPRIL 5 MG TAB PO SCH (08:08)
[2019-04-08] MEDS: HEPARIN 5,000 UNIT/1 ML VIAL SC SCH ×2 (08:15→20:49)
[2019-04-08 16:07] VITALS: BP 146/75; PULSE 81; RESP 20
[2019-04-08 19:38] VITALS: BP 148/73; PULSE 72; RESP 18
[2019-04-08] MEDS: INSULIN GLARGINE [LANTus] (100 UNITS/ML) SYG SC SCH (20:48)
[2019-04-08] MEDS: ATORVASTATIN 40 MG TAB PO SCH (20:51)
[2019-04-09 01:37] VITALS: BP 156/78; PULSE 76; RESP 16
[2019-04-09] MEDS: ACCU-CHEK XX SCH (02:00)
[2019-04-09] MEDS: INSULIN ASPART [NOVOLOG] 3 ML PEN SC SCH ×7 (08:00→21:00)
[2019-04-09 08:01] VITALS: BP 168/80; PULSE 71; RESP 15
[2019-04-09] MEDS: CLOPIDOGREL 75 MG TAB PO SCH (08:28)
[2019-04-09] MEDS: FLUCONAZOLE 200 MG TAB PO SCH ×2 (08:28→21:31)
[2019-04-09] MEDS: LISINOPRIL 5 MG TAB PO SCH (08:28)
[2019-04-09] MEDS: CHOLECALCIFEROL 2,000 UNIT CAP PO SCH (08:28)
[2019-04-09] MEDS: ASPIRIN (EC) 81 MG TAB PO SCH (08:28)
[2019-04-09] MEDS: POLYETHYLENE GLYCOL 17 GM PACKET PO SCH (08:30)
[2019-04-09] MEDS: HEPARIN 5,000 UNIT/1 ML VIAL SC SCH ×2 (08:30→21:34)
[2019-04-09] MEDS: CEFEPIME 1GM/50 ML (PMX) 50 ML IVPB SCH ×2 (08:31→21:31)
[2019-04-09] MEDS: DOCUSATE SODIUM 100 MG CAP PO SCH ×2 (12:35→21:31)
[2019-04-09 13:43] VITALS: BP 165/80; PULSE 74; RESP 16
[2019-04-09 19:38] VITALS: BP 148/75; PULSE 71; RESP 17
[2019-04-09] MEDS: ATORVASTATIN 40 MG TAB PO SCH (21:31)
[2019-04-09] MEDS: INSULIN GLARGINE [LANTus] (100 UNITS/ML) SYG SC SCH (21:34)
[2019-04-10 01:29] VITALS: BP 144/70; PULSE 71; RESP 18
[2019-04-10] MEDS: ACCU-CHEK XX SCH (02:00)
[2019-04-10 07:28] VITALS: BP 156/75; PULSE 71; RESP 18
[2019-04-10] MEDS: INSULIN ASPART [NOVOLOG] 3 ML PEN SC SCH ×7 (08:00→21:59)
[2019-04-10] MEDS: CEFEPIME 1GM/50 ML (PMX) 50 ML IVPB SCH ×2 (08:35→21:58)
[2019-04-10] MEDS: CLOPIDOGREL 75 MG TAB PO SCH (08:36)
[2019-04-10] MEDS: CHOLECALCIFEROL 2,000 UNIT CAP PO SCH (08:36)
[2019-04-10] MEDS: DOCUSATE SODIUM 100 MG CAP PO SCH ×2 (08:36→21:58)
[2019-04-10] MEDS: ASPIRIN (EC) 81 MG TAB PO SCH (08:36)
[2019-04-10] MEDS: LISINOPRIL 5 MG TAB PO SCH (08:36)
[2019-04-10] MEDS: FLUCONAZOLE 200 MG TAB PO SCH ×2 (08:36→21:58)
[2019-04-10] MEDS: HEPARIN 5,000 UNIT/1 ML VIAL SC SCH ×2 (08:42→22:01)
[2019-04-10] MEDS: POLYETHYLENE GLYCOL 17 GM PACKET PO SCH (08:44)
[2019-04-10 14:48] VITALS: BP 128/69; PULSE 69; RESP 17
[2019-04-10 20:01] VITALS: BP 153/76; PULSE 70; RESP 18
[2019-04-10] MEDS: ATORVASTATIN 40 MG TAB PO SCH (21:58)
[2019-04-10] MEDS: ZOLPIDEM 5 MG TAB PO PRN (21:58)
[2019-04-10] MEDS: INSULIN GLARGINE [LANTus] (100 UNITS/ML) SYG SC SCH (22:00)
[2019-04-11 02:00] VITALS: BP 158/78; PULSE 66; RESP 20
[2019-04-11] MEDS: ACCU-CHEK XX SCH (02:00)
[2019-04-11 07:33] VITALS: BP 131/73; PULSE 70; RESP 16
[2019-04-11] MEDS: INSULIN ASPART [NOVOLOG] 3 ML PEN SC SCH ×7 (08:00→20:44)
[2019-04-11] MEDS: FLUCONAZOLE 200 MG TAB PO SCH ×2 (08:24→20:36)
[2019-04-11] MEDS: CHOLECALCIFEROL 2,000 UNIT CAP PO SCH (08:24)
[2019-04-11] MEDS: LISINOPRIL 5 MG TAB PO SCH (08:24)
[2019-04-11] MEDS: ASPIRIN (EC) 81 MG TAB PO SCH (08:24)
[2019-04-11] MEDS: CLOPIDOGREL 75 MG TAB PO SCH (08:25)
[2019-04-11] MEDS: POLYETHYLENE GLYCOL 17 GM PACKET PO SCH (08:27)
[2019-04-11] MEDS: HEPARIN 5,000 UNIT/1 ML VIAL SC SCH ×2 (08:30→20:44)
[2019-04-11] MEDS: DOCUSATE SODIUM 100 MG CAP PO SCH ×2 (08:33→20:36)
[2019-04-11] MEDS: CEFEPIME 1GM/50 ML (PMX) 50 ML IVPB SCH ×2 (10:01→20:35)
[2019-04-11 14:18] VITALS: BP 140/77; PULSE 71; RESP 16
[2019-04-11 20:14] VITALS: BP 147/72; PULSE 76; RESP 17
[2019-04-11] MEDS: ATORVASTATIN 40 MG TAB PO SCH (20:36)
[2019-04-11] MEDS: INSULIN GLARGINE [LANTus] (100 UNITS/ML) SYG SC SCH (20:42)
[2019-04-12] MEDS: ACCU-CHEK XX SCH (01:54)
[2019-04-12 02:00] VITALS: BP 139/67; PULSE 67; RESP 16
[2019-04-12] MEDS: INSULIN ASPART [NOVOLOG] 3 ML PEN SC SCH ×7 (08:00→21:00)
[2019-04-12] MEDS: FLUCONAZOLE 200 MG TAB PO SCH ×2 (08:07→21:23)
[2019-04-12] MEDS: DOCUSATE SODIUM 100 MG CAP PO SCH ×2 (08:07→21:23)
[2019-04-12] MEDS: ASPIRIN (EC) 81 MG TAB PO SCH (08:07)
[2019-04-12] MEDS: POLYETHYLENE GLYCOL 17 GM PACKET PO SCH (08:07)
[2019-04-12] MEDS: HEPARIN 5,000 UNIT/1 ML VIAL SC SCH ×2 (08:09→21:26)
[2019-04-12] MEDS: CEFEPIME 1GM/50 ML (PMX) 50 ML IVPB SCH ×2 (08:11→21:22)
[2019-04-12] MEDS: LISINOPRIL 5 MG TAB PO SCH (08:12)
[2019-04-12] MEDS: CHOLECALCIFEROL 2,000 UNIT CAP PO SCH (08:16)
[2019-04-12] MEDS: CLOPIDOGREL 75 MG TAB PO SCH (08:16)
[2019-04-12 08:17] VITALS: BP 157/76; PULSE 72; RESP 18
[2019-04-12 13:43] VITALS: BP 146/84; PULSE 67; RESP 18
[2019-04-12 20:05] VITALS: BP 146/72; PULSE 70; RESP 16
[2019-04-12] MEDS: ATORVASTATIN 40 MG TAB PO SCH (21:23)
[2019-04-12] MEDS: INSULIN GLARGINE [LANTus] (100 UNITS/ML) SYG SC SCH (21:27)
[2019-04-13] MEDS: ACCU-CHEK XX SCH (01:20)
[2019-04-13 02:20] VITALS: BP 146/75; PULSE 78; RESP 18
[2019-04-13] MEDS: INSULIN ASPART [NOVOLOG] 3 ML PEN SC SCH ×7 (08:00→20:29)
[2019-04-13] MEDS: HEPARIN 5,000 UNIT/1 ML VIAL SC SCH ×2 (08:10→20:30)
[2019-04-13 08:11] VITALS: BP 147/74; PULSE 70; RESP 16
[2019-04-13] MEDS: POLYETHYLENE GLYCOL 17 GM PACKET PO SCH (08:11)
[2019-04-13] MEDS: CEFEPIME 1GM/50 ML (PMX) 50 ML IVPB SCH ×2 (08:12→20:32)
[2019-04-13] MEDS: DOCUSATE SODIUM 100 MG CAP PO SCH ×2 (08:12→20:31)
[2019-04-13] MEDS: CHOLECALCIFEROL 2,000 UNIT CAP PO SCH (08:12)
[2019-04-13] MEDS: FLUCONAZOLE 200 MG TAB PO SCH ×2 (08:12→20:31)
[2019-04-13] MEDS: LISINOPRIL 5 MG TAB PO SCH (08:12)
[2019-04-13] MEDS: ASPIRIN (EC) 81 MG TAB PO SCH (08:12)
[2019-04-13] MEDS: CLOPIDOGREL 75 MG TAB PO SCH (08:12)
[2019-04-13 14:00] VITALS: BP 150/71; PULSE 73; RESP 16
[2019-04-13 20:30] VITALS: BP 138/67; PULSE 71; RESP 18
[2019-04-13] MEDS: INSULIN GLARGINE [LANTus] (100 UNITS/ML) SYG SC SCH (20:30)
[2019-04-13] MEDS: ATORVASTATIN 40 MG TAB PO SCH (20:31)
[2019-04-14] MEDS: ACCU-CHEK XX SCH (01:48)
[2019-04-14 02:16] VITALS: BP 143/63; PULSE 70; RESP 19
[2019-04-14 07:28] VITALS: BP 154/74; PULSE 72; RESP 16
[2019-04-14] MEDS: INSULIN ASPART [NOVOLOG] 3 ML PEN SC SCH ×7 (08:00→21:09)
[2019-04-14] MEDS: CHOLECALCIFEROL 2,000 UNIT CAP PO SCH (08:35)
[2019-04-14] MEDS: CLOPIDOGREL 75 MG TAB PO SCH (08:35)
[2019-04-14] MEDS: HEPARIN 5,000 UNIT/1 ML VIAL SC SCH ×2 (08:36→21:09)
[2019-04-14] MEDS: FLUCONAZOLE 200 MG TAB PO SCH ×2 (08:36→21:01)
[2019-04-14] MEDS: LISINOPRIL 5 MG TAB PO SCH (08:36)
[2019-04-14] MEDS: ASPIRIN (EC) 81 MG TAB PO SCH (08:36)
[2019-04-14] MEDS: CEFEPIME 1GM/50 ML (PMX) 50 ML IVPB SCH ×2 (08:37→21:02)
[2019-04-14] MEDS: POLYETHYLENE GLYCOL 17 GM PACKET PO SCH (08:37)
[2019-04-14] MEDS: DOCUSATE SODIUM 100 MG CAP PO SCH ×2 (08:39→21:01)
[2019-04-14 14:43] VITALS: BP 140/70; PULSE 77; RESP 16
[2019-04-14 20:21] VITALS: BP 154/76; PULSE 75; RESP 17
[2019-04-14] MEDS: ZOLPIDEM 5 MG TAB PO PRN (21:01)
[2019-04-14] MEDS: ATORVASTATIN 40 MG TAB PO SCH (21:01)
[2019-04-14] MEDS: INSULIN GLARGINE [LANTus] (100 UNITS/ML) SYG SC SCH (21:09)
[2019-04-15] MEDS: ACCU-CHEK XX SCH (02:00)
[2019-04-15 02:53] VITALS: BP 158/78; PULSE 70; RESP 18
[2019-04-15 08:00] VITALS: BP 161/79; PULSE 69; RESP 18
[2019-04-15] MEDS: INSULIN ASPART [NOVOLOG] 3 ML PEN SC SCH ×7 (08:00→20:39)
[2019-04-15] MEDS: CEFEPIME 1GM/50 ML (PMX) 50 ML IVPB SCH ×2 (09:05→20:49)
[2019-04-15] MEDS: FLUCONAZOLE 200 MG TAB PO SCH ×2 (09:06→20:37)
[2019-04-15] MEDS: ASPIRIN (EC) 81 MG TAB PO SCH (09:06)
[2019-04-15] MEDS: DOCUSATE SODIUM 100 MG CAP PO SCH ×2 (09:06→20:37)
[2019-04-15] MEDS: CHOLECALCIFEROL 2,000 UNIT CAP PO SCH (09:06)
[2019-04-15] MEDS: POLYETHYLENE GLYCOL 17 GM PACKET PO SCH (09:06)
[2019-04-15] MEDS: CLOPIDOGREL 75 MG TAB PO SCH (09:06)
[2019-04-15] MEDS: LISINOPRIL 5 MG TAB PO SCH (09:07)
[2019-04-15] MEDS: HEPARIN 5,000 UNIT/1 ML VIAL SC SCH ×2 (09:08→20:48)
[2019-04-15 14:05] VITALS: BP 144/73; PULSE 68; RESP 18
[2019-04-15 19:30] VITALS: BP 147/76; PULSE 76; RESP 17
[2019-04-15] MEDS: ATORVASTATIN 40 MG TAB PO SCH (20:37)
[2019-04-15] MEDS: INSULIN GLARGINE [LANTus] (100 UNITS/ML) SYG SC SCH (20:49)
[2019-04-15] MEDS: ZOLPIDEM 5 MG TAB PO PRN (22:30)
[2019-04-16 01:28] VITALS: BP 134/69; PULSE 71; RESP 16
[2019-04-16] MEDS: ACCU-CHEK XX SCH (02:00)
[2019-04-16 07:30] VITALS: BP 158/77; PULSE 69; RESP 18
[2019-04-16] MEDS: INSULIN ASPART [NOVOLOG] 3 ML PEN SC SCH ×7 (08:00→21:00)
[2019-04-16] MEDS: ASPIRIN (EC) 81 MG TAB PO SCH (08:36)
[2019-04-16] MEDS: CLOPIDOGREL 75 MG TAB PO SCH (08:36)
[2019-04-16] MEDS: CEFEPIME 1GM/50 ML (PMX) 50 ML IVPB SCH ×2 (08:36→21:09)
[2019-04-16] MEDS: LISINOPRIL 5 MG TAB PO SCH (08:37)
[2019-04-16] MEDS: POLYETHYLENE GLYCOL 17 GM PACKET PO SCH (08:37)
[2019-04-16] MEDS: CHOLECALCIFEROL 2,000 UNIT CAP PO SCH (08:37)
[2019-04-16] MEDS: FLUCONAZOLE 200 MG TAB PO SCH ×2 (08:37→21:09)
[2019-04-16] MEDS: HEPARIN 5,000 UNIT/1 ML VIAL SC SCH ×2 (08:42→21:14)
[2019-04-16] MEDS: DOCUSATE SODIUM 100 MG CAP PO SCH ×2 (08:54→21:09)
[2019-04-16 14:26] VITALS: BP 133/70; PULSE 76; RESP 16
[2019-04-16 19:18] VITALS: BP 134/69; PULSE 77; RESP 18
[2019-04-16] MEDS: ATORVASTATIN 40 MG TAB PO SCH (21:09)
[2019-04-16] MEDS: INSULIN GLARGINE [LANTus] (100 UNITS/ML) SYG SC SCH (21:13)
[2019-04-16] MEDS: ZOLPIDEM 5 MG TAB PO PRN (22:26)
[2019-04-17] MEDS: ACCU-CHEK XX SCH (01:26)
[2019-04-17 02:04] VITALS: BP 150/79; PULSE 76; RESP 18
[2019-04-17] MEDS: INSULIN ASPART [NOVOLOG] 3 ML PEN SC SCH ×7 (08:00→22:11)
[2019-04-17 08:13] VITALS: BP 156/75; PULSE 71; RESP 20
[2019-04-17] MEDS: CLOPIDOGREL 75 MG TAB PO SCH (08:14)
[2019-04-17] MEDS: CEFEPIME 1GM/50 ML (PMX) 50 ML IVPB SCH ×2 (08:14→22:03)
[2019-04-17] MEDS: FLUCONAZOLE 200 MG TAB PO SCH ×2 (08:14→21:57)
[2019-04-17] MEDS: ASPIRIN (EC) 81 MG TAB PO SCH (08:14)
[2019-04-17] MEDS: CHOLECALCIFEROL 2,000 UNIT CAP PO SCH (08:14)
[2019-04-17] MEDS: LISINOPRIL 5 MG TAB PO SCH (08:15)
[2019-04-17] MEDS: POLYETHYLENE GLYCOL 17 GM PACKET PO SCH (08:16)
[2019-04-17] MEDS: HEPARIN 5,000 UNIT/1 ML VIAL SC SCH ×2 (08:18→22:10)
[2019-04-17] MEDS: DOCUSATE SODIUM 100 MG CAP PO SCH ×2 (08:45→21:57)
[2019-04-17 14:00] VITALS: BP 152/74; PULSE 68; RESP 16
[2019-04-17 19:45] VITALS: BP 148/70; PULSE 71; RESP 17
[2019-04-17] MEDS: ATORVASTATIN 40 MG TAB PO SCH (21:57)
[2019-04-17] MEDS: ZOLPIDEM 5 MG TAB PO PRN (22:02)
[2019-04-17] MEDS: INSULIN GLARGINE [LANTus] (100 UNITS/ML) SYG SC SCH (22:10)
[2019-04-18] MEDS: ACCU-CHEK XX SCH (02:00)
[2019-04-18 02:53] VITALS: BP 143/66; PULSE 69; RESP 16
[2019-04-18 07:34] VITALS: BP 168/78; PULSE 68; RESP 18
[2019-04-18] MEDS: INSULIN ASPART [NOVOLOG] 3 ML PEN SC SCH ×7 (08:25→20:42)
[2019-04-18] MEDS: ASPIRIN (EC) 81 MG TAB PO SCH (08:32)
[2019-04-18] MEDS: POLYETHYLENE GLYCOL 17 GM PACKET PO SCH (08:32)
[2019-04-18] MEDS: LISINOPRIL 5 MG TAB PO SCH (08:32)
[2019-04-18] MEDS: CLOPIDOGREL 75 MG TAB PO SCH (08:33)
[2019-04-18] MEDS: CHOLECALCIFEROL 2,000 UNIT CAP PO SCH (08:33)
[2019-04-18] MEDS: FLUCONAZOLE 200 MG TAB PO SCH ×2 (08:33→20:45)
[2019-04-18] MEDS: CEFEPIME 1GM/50 ML (PMX) 50 ML IVPB SCH ×2 (08:33→20:45)
[2019-04-18] MEDS: HEPARIN 5,000 UNIT/1 ML VIAL SC SCH ×2 (08:37→20:41)
[2019-04-18] MEDS: DOCUSATE SODIUM 100 MG CAP PO SCH ×2 (08:54→22:14)
[2019-04-18] MEDS: AMLODIPINE 5 MG TAB PO SCH (13:18)
[2019-04-18 14:37] VITALS: BP 139/72; PULSE 71; RESP 17
[2019-04-18 19:54] VITALS: BP 123/61; PULSE 71; RESP 17
[2019-04-18] MEDS: INSULIN GLARGINE [LANTus] (100 UNITS/ML) SYG SC SCH (20:40)
[2019-04-18] MEDS: ATORVASTATIN 40 MG TAB PO SCH (20:45)
[2019-04-18] MEDS: ZOLPIDEM 5 MG TAB PO PRN (22:14)
[2019-04-18] MEDS: MUPIROCIN 2% 22 GM OINT TOP SCH (22:23)
[2019-04-18] MEDS: MUPIROCIN 2% 15 GM CR TOP SCH (22:35)
[2019-04-19] MEDS: ACCU-CHEK XX SCH (02:09)
[2019-04-19 02:44] VITALS: BP 145/66; PULSE 71; RESP 16
[2019-04-19 07:17] VITALS: BP 140/71; PULSE 69; RESP 18
[2019-04-19] MEDS: INSULIN ASPART [NOVOLOG] 3 ML PEN SC SCH ×7 (08:00→20:34)
[2019-04-19] MEDS: MUPIROCIN 2% 15 GM CR TOP SCH ×2 (09:00→20:41)
[2019-04-19] MEDS: FLUCONAZOLE 200 MG TAB PO SCH ×2 (09:17→20:35)
[2019-04-19] MEDS: CEFEPIME 1GM/50 ML (PMX) 50 ML IVPB SCH ×2 (09:17→20:35)
[2019-04-19] MEDS: CHOLECALCIFEROL 2,000 UNIT CAP PO SCH (09:17)
[2019-04-19] MEDS: DOCUSATE SODIUM 100 MG CAP PO SCH ×2 (09:17→20:35)
[2019-04-19] MEDS: CLOPIDOGREL 75 MG TAB PO SCH (09:17)
[2019-04-19] MEDS: POLYETHYLENE GLYCOL 17 GM PACKET PO SCH (09:17)
[2019-04-19] MEDS: HEPARIN 5,000 UNIT/1 ML VIAL SC SCH ×2 (09:17→20:35)
[2019-04-19] MEDS: AMLODIPINE 5 MG TAB PO SCH (09:18)
[2019-04-19] MEDS: LISINOPRIL 5 MG TAB PO SCH (09:18)
[2019-04-19] MEDS: MUPIROCIN 2% 22 GM OINT TOP SCH ×2 (09:19→20:36)
[2019-04-19 14:05] VITALS: BP 129/63; PULSE 73; RESP 17
[2019-04-19 19:26] VITALS: BP 120/65; PULSE 74; RESP 18
[2019-04-19] MEDS: INSULIN GLARGINE [LANTus] (100 UNITS/ML) SYG SC SCH (20:33)
[2019-04-19] MEDS: ZOLPIDEM 5 MG TAB PO PRN (21:32)
[2019-04-20 01:40] VITALS: BP 117/58; PULSE 67; RESP 16
[2019-04-20] MEDS ORDERED: INSULIN ASPART [NOVOLOG] 3 ML PEN SC ONE (02:30)
[2019-04-20] MEDS ORDERED: ACCU-CHEK XX ONE (04:30)
[2019-04-20 08:00] VITALS: BP 145/71; PULSE 70; RESP 16
[2019-04-20] MEDS: INSULIN ASPART [NOVOLOG] 3 ML PEN SC SCH ×7 (08:00→21:38)
[2019-04-20] MEDS: MUPIROCIN 2% 15 GM CR TOP SCH ×2 (09:00→21:00)
[2019-04-20] MEDS: DOCUSATE SODIUM 100 MG CAP PO SCH ×2 (09:17→21:23)
[2019-04-20] MEDS: CEFEPIME 1GM/50 ML (PMX) 50 ML IVPB SCH ×2 (09:17→21:23)
[2019-04-20] MEDS: FLUCONAZOLE 200 MG TAB PO SCH ×2 (09:17→21:23)
[2019-04-20] MEDS: CHOLECALCIFEROL 2,000 UNIT CAP PO SCH (09:17)
[2019-04-20] MEDS: POLYETHYLENE GLYCOL 17 GM PACKET PO SCH (09:18)
[2019-04-20] MEDS: LISINOPRIL 5 MG TAB PO SCH (09:18)
[2019-04-20] MEDS: AMLODIPINE 5 MG TAB PO SCH (09:18)
[2019-04-20] MEDS: MUPIROCIN 2% 22 GM OINT TOP SCH ×2 (09:19→21:41)
[2019-04-20] MEDS: HEPARIN 5,000 UNIT/1 ML VIAL SC SCH (09:27)
[2019-04-20 14:00] VITALS: BP 133/71; PULSE 69; RESP 16
[2019-04-20 20:07] VITALS: BP 140/72; PULSE 73; RESP 18
[2019-04-20] MEDS: INSULIN GLARGINE [LANTus] (100 UNITS/ML) SYG SC SCH (21:39)
[2019-04-20] MEDS: ZOLPIDEM 5 MG TAB PO PRN (21:39)
[2019-04-21 03:33] VITALS: BP 141/70; PULSE 74; RESP 17
[2019-04-21 07:23] VITALS: BP 149/74; PULSE 71; RESP 17
[2019-04-21] MEDS: CEFEPIME 1GM/50 ML (PMX) 50 ML IVPB SCH ×2 (08:05→22:01)
[2019-04-21] MEDS: LISINOPRIL 5 MG TAB PO SCH (08:07)
[2019-04-21] MEDS: POLYETHYLENE GLYCOL 17 GM PACKET PO SCH (08:07)
[2019-04-21] MEDS: FLUCONAZOLE 200 MG TAB PO SCH ×2 (08:07→21:59)
[2019-04-21] MEDS: AMLODIPINE 5 MG TAB PO SCH (08:07)
[2019-04-21] MEDS: MUPIROCIN 2% 22 GM OINT TOP SCH ×2 (08:08→22:10)
[2019-04-21] MEDS: INSULIN ASPART [NOVOLOG] 3 ML PEN SC SCH ×7 (08:10→22:08)
[2019-04-21] MEDS: DOCUSATE SODIUM 100 MG CAP PO SCH ×2 (08:17→21:59)
[2019-04-21] MEDS: CHOLECALCIFEROL 2,000 UNIT CAP PO SCH (08:17)
[2019-04-21 15:00] VITALS: BP 120/73; PULSE 80; RESP 17
[2019-04-21 19:19] VITALS: BP 108/54; PULSE 77; RESP 18
[2019-04-21] MEDS: INSULIN GLARGINE [LANTus] (100 UNITS/ML) SYG SC SCH (22:09)
[2019-04-21] MEDS: ZOLPIDEM 5 MG TAB PO PRN (23:04)
[2019-04-22 01:01] VITALS: BP 115/59; PULSE 75; RESP 17
[2019-04-22 07:54] VITALS: BP 144/73; PULSE 72; RESP 16
[2019-04-22] MEDS: INSULIN ASPART [NOVOLOG] 3 ML PEN SC SCH ×7 (08:00→20:48)
[2019-04-22] MEDS: CEFEPIME 1GM/50 ML (PMX) 50 ML IVPB SCH ×2 (08:25→20:43)
[2019-04-22] MEDS: POLYETHYLENE GLYCOL 17 GM PACKET PO SCH (08:26)
[2019-04-22] MEDS: FLUCONAZOLE 200 MG TAB PO SCH ×2 (08:27→20:43)
[2019-04-22] MEDS: LISINOPRIL 5 MG TAB PO SCH (08:27)
[2019-04-22] MEDS: CHOLECALCIFEROL 2,000 UNIT CAP PO SCH (08:27)
[2019-04-22] MEDS: AMLODIPINE 5 MG TAB PO SCH (08:27)
[2019-04-22] MEDS: MUPIROCIN 2% 22 GM OINT TOP SCH ×2 (08:28→20:44)
[2019-04-22] MEDS: DOCUSATE SODIUM 100 MG CAP PO SCH ×2 (08:36→20:43)
[2019-04-22 15:10] VITALS: BP 134/65; PULSE 72; RESP 18
[2019-04-22 19:23] VITALS: BP 125/65; PULSE 70; RESP 18
[2019-04-22] MEDS: INSULIN GLARGINE [LANTus] (100 UNITS/ML) SYG SC SCH (20:46)
[2019-04-22] MEDS: ZOLPIDEM 5 MG TAB PO PRN (20:52)
[2019-04-23 01:13] VITALS: BP 136/72; PULSE 72; RESP 18
[2019-04-23 07:20] VITALS: BP 135/71; PULSE 72; RESP 16
[2019-04-23] MEDS: INSULIN ASPART [NOVOLOG] 3 ML PEN SC SCH ×7 (08:02→20:44)
[2019-04-23] MEDS: LISINOPRIL 5 MG TAB PO SCH (08:04)
[2019-04-23] MEDS: DOCUSATE SODIUM 100 MG CAP PO SCH ×2 (08:04→21:47)
[2019-04-23] MEDS: AMLODIPINE 5 MG TAB PO SCH (08:04)
[2019-04-23] MEDS: CHOLECALCIFEROL 2,000 UNIT CAP PO SCH (08:05)
[2019-04-23] MEDS: FLUCONAZOLE 200 MG TAB PO SCH ×2 (08:05→20:43)
[2019-04-23] MEDS: POLYETHYLENE GLYCOL 17 GM PACKET PO SCH (08:05)
[2019-04-23] MEDS: CEFEPIME 1GM/50 ML (PMX) 50 ML IVPB SCH ×2 (08:06→20:43)
[2019-04-23] MEDS: MUPIROCIN 2% 22 GM OINT TOP SCH ×2 (12:32→20:44)
[2019-04-23 13:58] VITALS: BP 129/63; PULSE 71; RESP 18
[2019-04-23 19:26] VITALS: BP 106/56; PULSE 73; RESP 20
[2019-04-23] MEDS: INSULIN GLARGINE [LANTus] (100 UNITS/ML) SYG SC SCH (20:50)
[2019-04-23] MEDS: ZOLPIDEM 5 MG TAB PO PRN (21:47)
[2019-04-24 01:32] VITALS: BP 121/57; PULSE 76; RESP 20
[2019-04-24] MEDS: INSULIN ASPART [NOVOLOG] 3 ML PEN SC SCH ×6 (08:24→18:14)
[2019-04-24 08:41] VITALS: BP 150/76; PULSE 73; RESP 16
[2019-04-24] MEDS: CEFEPIME 1GM/50 ML (PMX) 50 ML IVPB SCH (08:51)
[2019-04-24] MEDS: DOCUSATE SODIUM 100 MG CAP PO SCH (08:51)
[2019-04-24] MEDS: CHOLECALCIFEROL 2,000 UNIT CAP PO SCH (08:52)
[2019-04-24] MEDS: AMLODIPINE 5 MG TAB PO SCH (08:52)
[2019-04-24] MEDS: MUPIROCIN 2% 22 GM OINT TOP SCH (08:53)
[2019-04-24] MEDS: POLYETHYLENE GLYCOL 17 GM PACKET PO SCH (08:53)
[2019-04-24] MEDS: LISINOPRIL 5 MG TAB PO SCH (08:53)
[2019-04-24] MEDS: FLUCONAZOLE 200 MG TAB PO SCH (09:01)
[2019-04-24 14:08] VITALS: BP 123/68; PULSE 76; RESP 18
[2019-04-24 14:13] VITALS: BP 103/55; PULSE 78; RESP 20
== END 2019-04-24 18:55 | DRG 252 ==
LOC: FTE 17:32 → 2NE 20:15
PROVIDERS: ADMIT Family Medicine; ATTEND Family Medicine
PROC: 0Y6X0Z0 Detachment at Right 5th Toe, Complete, Open Approach (ICD-10-PCS; 2019-03-16)
PROC: 0HRMXK3 Replacement of Right Foot Skin with Nonautologous Tissue Substitute, Full Thickness, External Approach (ICD-10-PCS; 2019-03-16)
PROC: 0KBV0ZZ Excision of Right Foot Muscle, Open Approach (ICD-10-PCS; 2019-03-16)
PROC: 0Y6X0Z1 Detachment at Right 5th Toe, High, Open Approach (ICD-10-PCS; principal; 2019-03-16 11:30)
PROC: [UNRECOGNIZED PROCEDURE] (2019-03-18 07:30)
PROC: 0Y6X0Z0 Detachment at Right 5th Toe, Complete, Open Approach (ICD-10-PCS; 2019-03-21)
PROC: 0KBV0ZZ Excision of Right Foot Muscle, Open Approach (ICD-10-PCS; 2019-03-21)
PROC: 0LBV0ZZ Excision of Right Foot Tendon, Open Approach (ICD-10-PCS; 2019-04-01)
PROC: 0HRMXK3 Replacement of Right Foot Skin with Nonautologous Tissue Substitute, Full Thickness, External Approach (ICD-10-PCS; 2019-04-01)
PROC: 0Y9M0ZX Drainage of Right Foot, Open Approach, Diagnostic (ICD-10-PCS; 2019-04-01)
PROC: 30233N1 Transfusion of Nonautologous Red Blood Cells into Peripheral Vein, Percutaneous Approach (ICD-10-PCS; 2019-04-01)
DX: E11.52 Type 2 diabetes mellitus with diabetic peripheral angiopathy with gangrene (principal); A48.0 Gas gangrene; M86.8X7 Other osteomyelitis, ankle and foot; L03.115 Cellulitis of right lower limb; E87.3 Alkalosis; E87.1 Hypo-osmolality and hyponatremia; M86.9 Osteomyelitis, unspecified; E11.69 Type 2 diabetes mellitus with other specified complication; E11.621 Type 2 diabetes mellitus with foot ulcer; E11.628 Type 2 diabetes mellitus with other skin complications; E11.42 Type 2 diabetes mellitus with diabetic polyneuropathy; E11.65 Type 2 diabetes mellitus with hyperglycemia; L97.519 Non-pressure chronic ulcer of other part of right foot with unspecified severity; I73.9 Peripheral vascular disease, unspecified; I10 Essential (primary) hypertension; F17.200 Nicotine dependence, unspecified, uncomplicated; D64.9 Anemia, unspecified; E86.0 Dehydration; E78.5 Hyperlipidemia, unspecified; N43.3 Hydrocele, unspecified; Z79.4 Long term (current) use of insulin; E11.51 Type 2 diabetes mellitus with diabetic peripheral angiopathy without gangrene; N50.89 Other specified disorders of the male genital organs
CPT/HCPCS: 36430; 71045; 73590; 73630; 73718; 75630; 76870; 80048; 80053; 80061; 80202; 82043; 82270; 82306; 82565; 82652; 82962; 83036; 83735; 84100; 84145; 84443; 84520; 85014; 85018; 85025; 85049; 85610; 85651; 85670; 85730; 86140; 86850; 86900; 86901; 86920; 87070; 87075; 87102; 87116; 88304; 88305; 88311; 93922; 93970; 97110; 97116; 97161; 97530; C1725; C1760; C1769; C1887; C1894; J0360; J0690; J0692; J0696; J1644; J1815; J1940; J2185; J2250; J2270; J2405; J2543; J2795; J3010; J3370; J7030; L3260; P9016; Q4104-JC